=== PATIENT | female | born 1935 | race Two or more races ===

== ENCOUNTER 2021-01-12 22:36 | Emergency (ER) | payer OTHER ==
[~2021-01-12] VITALS: Ht 157.5 cm; Wt 54.4 kg
[~2021-01-12 22:36] MED LIST: AVALIDE; GLUCOVANCE
[2021-01-12] MEDS ORDERED: LOSARTAN (22:53)
== END 2021-01-13 02:11 | disposition home or self-care (01) ==
LOC: EDBD 22:36 → ER 22:36
DX: G45.8 Other transient cerebral ischemic attacks and related syndromes (principal)

== ENCOUNTER → 2022-08-18 | Emergency (ER) | payer OTHER ==
[~2022-08-18] VITALS: Ht 162.6 cm; Wt 54.4 kg
[~2022-08-18] MED LIST changes: +HUMALOG MI100 UNIT/2 SQ; +LOSARTAN
== END | disposition home or self-care (01) ==
LOC: ER 13:57
DX: E13.65 Other specified diabetes mellitus with hyperglycemia (principal); R53.81 Other malaise

== ENCOUNTER 2022-12-18 14:24 | Emergency (ER) | payer OTHER ==
[~2022-12-18] VITALS: Ht 162.6 cm; Wt 54.4 kg
[2022-12-18] MEDS ORDERED: LOSARTAN-HCTZ1 EAC2 PO (14:31)
[2022-12-18] MEDS ORDERED: METRONIDAZOLE500 MG PO (19:08)
[2022-12-18] MEDS ORDERED: PEPCID AC20 MG PO (19:08)
== END 2022-12-18 20:17 | disposition home or self-care (01) ==
LOC: ER 14:24
PROVIDERS: General Practice
DX: A04.8 Other specified bacterial intestinal infections (principal); E11.9 Type 2 diabetes mellitus without complications; Z79.4 Long term (current) use of insulin; I10 Essential (primary) hypertension
CPT/HCPCS: 36415; 96365; 96366; 99283; J3490

== ENCOUNTER 2024-08-12 12:13 | Outpatient (CLI) | payer OTHER ==
[~2024-08-12 12:13] MED LIST changes: +LOSARTAN-HCTZ1 EAC2 PO; +METRONIDAZOLE500 MG PO; +PEPCID AC20 MG PO
[2024-08-15] MEDS ORDERED: LEVOTHYROXINE25 MCG PO (08:45)
== END 2024-08-12 12:21 | disposition home or self-care (01) ==
LOC: RAD 12:13
PROVIDERS: ATTEND Orthopaedic Surgery
DX: M25.532 Pain in left wrist (principal)

== ENCOUNTER 2024-08-15 11:06 | Inpatient (IN) | payer OTHER ==
[2024-08-12 16:13] LABS: PH,URINE 5.5 (5.0-8.0); URINE APPEARANCE Clear; URINE BACTERIA 146.8 uL (0.0-1933); URINE BILIRRUBIN Negative (NEGATIVE); URINE BLOOD Moderate; URINE CAST 4.27 uL (0.0-1.40); URINE COLOR Yellow; URINE KETONE 15 (NEGATIVE); URINE LEUKOCYTE Negative; URINE NITRATE Negative; URINE PROTEIN >=1000 (NEGATIVE); URINE RBC 41.5 uL (0.0-20.8)
[2024-08-12 16:15] LABS: INR 1.04; PARTIAL THROMBOPLASTIN TIME 20.6 SECONDS (22.0-34.0); PROTHROMBIN TIME 11.3 SECONDS (9.0-11.5)
[2024-08-12 16:20] LABS: ALBUMIN 3.1 gm/dL (3.4-5.0); BILIRUBIN TOTAL 0.85 mg/dL (0.3-1.2); CALCIUM 9.4 mg/dL (8.5-10.1); CREATININE SERUM 0.63 mg/dL (0.55-1.02); GFR 89.39; POTASSIUM 3.88 mEq/L (3.5-5.1); TOTAL PROTEIN 7.1 gm/dL (6.4-8.2)
[2024-08-12 16:25] LABS: BASO % 0.3 % (0.1-1.2); EOS # 0.03 (0.04-0.54); EOS % 0.4 % (0.7-7.0); HEMATOCRIT 34.2 % (34.1-44.9); HEMOGLOBIN 11.4 g/dL (11.2-15.7); LYMPH # 1.92 (1.18-3.74); LYMPH % 25.9 % (19.3-53.1); MEAN CORPUSCULAR HEMOGLOBIN 27.5 pg (25.6-32.2); MONO # 0.62 (0.24-0.82); MONO % 8.4 % (4.7-12.5); NEUT # 4.81 (1.56-6.13); NEUT % 64.9 % (34.0-71.1); PLATELET COUNT 198 K/uL (163-369); RED BLOOD COUNT 4.14 M/uL (3.93-5.22)
[2024-08-12 16:47] LABS: URINE GLUCOSE >=1000 MG/DL (NEGATIVE); URINE YEAST FEW /hpf
[2024-08-12 16:59] LABS: COL EPI 112 SECONDS (82-175)
[~2024-08-15] VITALS: Ht 157.5 cm; Wt 49.9 kg
[2024-08-15 08:46] VITALS: BP 160/66
[~2024-08-15 11:06] MED LIST changes: +LEVOTHYROXINE25 MCG PO
[2024-08-15] MEDS ORDERED: CEFAZOLIN SODIUM 1,000 MG VIAL ONE (15:19)
[2024-08-15] MEDS ORDERED: INSULIN GLARGINE,HUM.REC.ANLOG 1,000 UNITS/10 ML UNITS SUBCUTANEO ONE (17:00)
[2024-08-15] MEDS ORDERED: INSULIN LISPRO 1,000 UNIT/10 ML UNITS SUBCUTANEO ONE (17:00)
[2024-08-15] MEDS ORDERED: ONDANSETRON HCL 2 MG/ML VIAL IV PRN (19:45)
[2024-08-15] MEDS ORDERED: TRAMADOL HCL 50 MG TABLET PO PRN (19:45)
[2024-08-15] MEDS ORDERED: ONDANSETRON 4 MG TAB.RAPDIS PO PRN (19:45)
[2024-08-15] MEDS ORDERED: PROMETHAZINE HCL 50 MG/ML AMPUL IM PRN (19:45)
[2024-08-15] MEDS ORDERED: MEPERIDINE HCL/PF 50 MG/ML VIAL IM PRN (19:45)
[2024-08-15] MEDS ORDERED: SODIUM CHLORIDE 0.45 % 1,000 ML IV SCH (19:45)
[2024-08-15] MEDS ORDERED: SUGAMMADEX SODIUM 200 MG/2 ML VIAL IV ONE (19:49)
[2024-08-15] MEDS ORDERED: INSULIN LISPRO 1,000 UNIT/10 ML UNITS SUBCUTANEO PRN (20:00)
[2024-08-15] MEDS ORDERED: DEXTROSE 50 % IN WATER 0.5 G/ML DISP.SYRIN IV PRN (20:00)
[2024-08-15] MEDS ORDERED: MORPHINE SULFATE 2 MG/ML CARTRIDGE IV ONE ×2 (20:45→21:45)
[2024-08-15] MEDS ORDERED: ACETAMINOPHEN 325 MG TABLET PO SCH (21:00)
[2024-08-15] MEDS ORDERED: hydrALAZINE HCL 20 MG VIAL ONE (22:06)
[2024-08-15] MEDS ORDERED: hydrALAZINE HCL 20 MG VIAL IV STA (22:06)
[2024-08-16 00:36] VITALS: BP 161/65; O2SAT 95
[2024-08-16] MEDS ORDERED: CEFAZOLIN SODIUM 1,000 MG VIAL IV SCH (01:00)
[2024-08-16 08:00] VITALS: BP 154/56; O2SAT 96
[2024-08-16] MEDS ORDERED: LOSARTAN/HYDROCHLOROTHIAZIDE 1 TAB TABLET PO SCH (09:00)
[2024-08-16] MEDS ORDERED: PANTOPRAZOLE SODIUM 40 MG TABLET.DR PO SCH (09:00)
[2024-08-16] MEDS ORDERED: INSULIN GLARGINE,HUM.REC.ANLOG 1,000 UNITS/10 ML UNITS SUBCUTANEO SCH (09:56)
[2024-08-16] MEDS ORDERED: INSULIN LISPRO 1,000 UNIT/10 ML UNITS SUBCUTANEO PRN (12:15)
[2024-08-16 12:52] LABS: BASO % 0.3 % (0.1-1.2); EOS # 0.12 (0.04-0.54); EOS % 1.6 % (0.7-7.0); HEMATOCRIT 31.7 % (34.1-44.9); LYMPH # 1.67 (1.18-3.74); LYMPH % 22.6 % (19.3-53.1); MEAN CORPUSCULAR HEMOGLOBIN 26.3 pg (25.6-32.2); MONO # 0.72 (0.24-0.82); MONO % 9.7 % (4.7-12.5); NEUT # 4.85 (1.56-6.13); NEUT % 65.5 % (34.0-71.1); PLATELET COUNT 212 K/uL (163-369); RED BLOOD COUNT 3.76 M/uL (3.93-5.22); RED CELL DISTRIBUTION WIDTH 14.4 % (11.6-14.4)
[2024-08-16 12:55] LABS: HEMOGLOBIN 9.9 g/dL (11.2-15.7)
[2024-08-16] MEDS ORDERED: INSULIN LISPRO 1,000 UNIT/10 ML UNITS SUBCUTANEO SCH (13:00)
[2024-08-16 13:32] LABS: CALCIUM 8.5 mg/dL (8.5-10.1); CREATININE SERUM 0.55 mg/dL (0.55-1.02); GFR 104.55; POTASSIUM 3.38 mEq/L (3.5-5.1)
[2024-08-16 16:00] VITALS: BP 186/83; O2SAT 97
[2024-08-16] MEDS ORDERED: hydrALAZINE HCL 20 MG VIAL IV PRN (18:00)
[2024-08-16] MEDS ORDERED: AMLODIPINE BESYLATE 2.5 MG TABLET PO STA (18:20)
[2024-08-17 01:19] VITALS: BP 143/62; O2SAT 98
[2024-08-17 08:00] VITALS: BP 170/74; O2SAT 97
[2024-08-17] MEDS ORDERED: AMLODIPINE BESYLATE 2.5 MG TABLET PO SCH (09:00)
== END 2024-08-17 14:58 | disposition home or self-care (01) | DRG 502 ==
LOC: CIR.AMB 11:06 → SURH 20:25
PROVIDERS: Internal Medicine; ADMIT Orthopaedic Surgery; ATTEND Orthopaedic Surgery
PROC: 0PSJ04Z Reposition Left Radius with Internal Fixation Device, Open Approach (ICD-10-PCS; 2024-08-15)
PROC: 0LN60ZZ Release Left Lower Arm and Wrist Tendon, Open Approach (ICD-10-PCS; 2024-08-15)
PROC: 0HBLXZZ Excision of Left Lower Leg Skin, External Approach (ICD-10-PCS; 2024-08-15)
PROC: 0HQLXZZ Repair Left Lower Leg Skin, External Approach (ICD-10-PCS; 2024-08-15)
PROC: 0L860ZZ Division of Left Lower Arm and Wrist Tendon, Open Approach (ICD-10-PCS; principal; 2024-08-15 17:30)
PROC: 0HDLXZZ Extraction of Left Lower Leg Skin, External Approach (ICD-10-PCS; 2024-08-16)
DX: S52.572A Other intraarticular fracture of lower end of left radius, initial encounter for closed fracture (principal); S81.812A Laceration without foreign body, left lower leg, initial encounter; T24.002A Burn of unspecified degree of unspecified site of left lower limb, except ankle and foot, initial encounter; M65.4 Radial styloid tenosynovitis [de Quervain]; M24.532 Contracture, left wrist; I10 Essential (primary) hypertension; E11.65 Type 2 diabetes mellitus with hyperglycemia; Z79.4 Long term (current) use of insulin

== ENCOUNTER → 2024-08-22 11:30 | Outpatient (CLI) | payer OTHER | END | disposition home or self-care (01) | LOC: RAD 11:30 | PROVIDERS: ATTEND Orthopaedic Surgery | DX: M79.605 Pain in left leg (principal) ==